=== PATIENT | female | born 1990 | race Caucasian/White ===

== ENCOUNTER 2018-10-17 13:33 | Outpatient (CLI) | payer MEDICAID | END 2018-10-17 19:15 | disposition home or self-care (01) | LOC: OBT 13:33 → L-D 13:33 → OBT 19:15 | DX: O62.9 Abnormality of forces of labor, unspecified (principal); Z3A.36 36 weeks gestation of pregnancy | CPT/HCPCS: 36415; 93970 ==

== ENCOUNTER 2018-10-22 03:01 | Inpatient (IN) | payer MEDICAID ==
[2018-10-22] MEDS: TERBUTALINE 1 MG/ML INJ SC (04:22)
[2018-10-22] MEDS: LACTATED RINGER'S 1,000 ML IV ×3 (04:23→21:24)
[2018-10-22 04:30] LABS: ADD MAN DIFF? NO
[2018-10-22] MEDS ORDERED: OXYTOCIN 30 UNITS/LR 500 ML IV ×4 (04:30→10:42)
[2018-10-22] MEDS ORDERED: MISOPROSTOL 200 MCG TAB PR ×2 (04:30→09:30)
[2018-10-22] MEDS ORDERED: CARBOPROST 250 MCG INJ IM ×2 (04:30→09:30)
[2018-10-22] MEDS ORDERED: METHYLERGONOVINE 0.2 MG INJ IM ×2 (04:30→09:30)
[2018-10-22 04:32] LABS: WHITE BLOOD COUNT 14.2 10^3/ul (4.8-10.8)
[2018-10-22 04:32] LABS: BASOPHIL # 0.1 10^3/ul (0.0-0.1); BASOPHILS % 0.4 % (0.0-2.0); EOSINOPHILS # 1.1 10^3/ul (0.0-0.5); EOSINOPHILS % 7.9 % (0.0-7.0); HEMATOCRIT 37.9 % (37.0-47.0); HEMOGLOBIN 12.2 g/dl (12.0-16.0); LYMPHOCYTES # 2.3 10^3/ul (0.8-2.9); LYMPHOCYTES % 16.5 % (15.0-51.0); MEAN CORPUSCULAR HEMOGLOBIN 27.9 pg (29.0-33.0); MEAN CORPUSCULAR HGB CONC 32.2 g/dl (32.0-37.0); MEAN CORPUSCULAR VOLUME 86.7 fl (82.0-101.0); MEAN PLATELET VOLUME 10.5 fl (7.4-10.4); MONOCYTES % 7.3 % (0.0-11.0); NEUTROPHIL # 9.5 10^3/ul (1.6-7.5); NEUTROPHILS % 67.3 % (39.0-77.0); PLATELET COUNT 226 10^3/UL (140-415); RED BLOOD COUNT 4.37 10^6/ul (4.20-5.40)
[2018-10-22 04:53] LABS: INR 0.89; PROTIME 12.2 Sec (11.9-14.9)
[2018-10-22 04:54] LABS: PARTIAL THROMBOPLASTIN TIME 25.8 Sec (23.0-35.0)
[2018-10-22 06:02] LABS: HEPATITIS B SURFACE ANTIGEN NEGATIVE (NEGATIVE)
[2018-10-22] MEDS ORDERED: morphine SULFATE/PF (10 MG/10 ML) INJ (08:04)
[2018-10-22] MEDS ORDERED: KETOROLAC 30 MG INJ (08:04)
[2018-10-22] MEDS ORDERED: METOCLOPRAMIDE 10 MG INJ (08:04)
[2018-10-22] MEDS ORDERED: FAMOTIDINE 20 MG INJ (09:01)
[2018-10-22] MEDS ORDERED: NACL 0.9% 3 ML SYG IV (09:30)
[2018-10-22] MEDS: OXYTOCIN 30 UNITS/LR 500 ML IV ×2 (09:32→12:15)
[2018-10-22] MEDS ORDERED: NALOXONE (0.4 MG/ML) INJ IV (11:30)
[2018-10-22] MEDS ORDERED: morphine 2 MG INJ IV ×5 (11:30)
[2018-10-22] MEDS ORDERED: DIPHENHYDRAMINE 50 MG INJ IV ×2 (11:30)
[2018-10-22] MEDS ORDERED: ONDANSETRON 4 MG INJ IV ×2 (11:30)
[2018-10-22] MEDS: morphine 2 MG INJ IV (11:41)
[2018-10-22] MEDS: CEFAZOLIN 2 GM/50 ML (PMX) 50 ML IVPB (15:50)
[2018-10-22 18:49] LABS: RAPID PLASMA REAGIN NONREACTIVE (NR)
[2018-10-23] MEDS: KETOROLAC 30 MG INJ IV (02:03)
[2018-10-23] MEDS: LACTATED RINGER'S 1,000 ML IV ×2 (05:29→12:03)
[2018-10-23 06:55] LABS: ADD MAN DIFF? NO
[2018-10-23 07:05] LABS: WHITE BLOOD COUNT 13.5 10^3/ul (4.8-10.8)
[2018-10-23 07:05] LABS: BASOPHIL # 0.1 10^3/ul (0.0-0.1); BASOPHILS % 0.4 % (0.0-2.0); EOSINOPHILS # 1.1 10^3/ul (0.0-0.5); EOSINOPHILS % 7.9 % (0.0-7.0); HEMATOCRIT 33.1 % (37.0-47.0); HEMOGLOBIN 10.4 g/dl (12.0-16.0); LYMPHOCYTES # 2.5 10^3/ul (0.8-2.9); LYMPHOCYTES % 18.7 % (15.0-51.0); MEAN CORPUSCULAR HEMOGLOBIN 27.7 pg (29.0-33.0); MEAN CORPUSCULAR HGB CONC 31.4 g/dl (32.0-37.0); MEAN CORPUSCULAR VOLUME 88.3 fl (82.0-101.0); MEAN PLATELET VOLUME 10.3 fl (7.4-10.4); MONOCYTE # 0.9 10^3/ul (0.3-0.9); MONOCYTES % 6.4 % (0.0-11.0); NEUTROPHIL # 8.9 10^3/ul (1.6-7.5); NEUTROPHILS % 66.1 % (39.0-77.0); PLATELET COUNT 197 10^3/UL (140-415); RED BLOOD COUNT 3.75 10^6/ul (4.20-5.40); RED CELL DISTRIBUTION WIDTH 14.1 % (11.5-14.5)
[2018-10-23] MEDS: LANOLIN HPA 1 PKT TOP (12:41)
[2018-10-23] MEDS: HYDROCODONE/APAP (5/325) TAB PO ×2 (12:41→21:23)
[2018-10-23] MEDS: IBUPROFEN 600 MG TAB PO (18:09)
[2018-10-24] MEDS: IBUPROFEN 600 MG TAB PO ×4 (00:10→17:40)
[2018-10-24] MEDS: NA PHOSPHATE/BIPHOS 133 ML ENEMA PR (11:59)
[2018-10-25] MEDS: IBUPROFEN 600 MG TAB PO ×4 (00:10→17:58)
[2018-10-25] MEDS: HYDROCODONE/APAP (5/325) TAB PO ×2 (03:27→13:38)
[2018-10-25] MEDS: DIPHTH/TET/ACEL PERTUSS (ADULT) 0.5 ML VIAL IM* (09:00)
[2018-10-25] MEDS: MEASLES,MUMPS,RUBELLA VACCINE INJ SC* (09:00)
[2018-10-26] MEDS: HYDROCODONE/APAP (5/325) TAB PO ×2 (01:06→10:02)
[2018-10-26] MEDS: IBUPROFEN 600 MG TAB PO ×3 (06:28→12:00)
== END 2018-10-26 13:45 | disposition home or self-care (01) | DRG 785 ==
LOC: OBT 03:01 → L-D 03:03 → OBT 03:30 → L-D 03:30 → PP1 12:21
PROVIDERS: Obstetrics & Gynecology
PROC: 10D00Z1 Extraction of Products of Conception, Low, Open Approach (ICD-10-PCS; principal; 2018-10-22)
PROC: 0UB70ZZ Excision of Bilateral Fallopian Tubes, Open Approach (ICD-10-PCS; 2018-10-22)
DX: O42.02 Full-term premature rupture of membranes, onset of labor within 24 hours of rupture (principal); Z37.0 Single live birth; Z3A.37 37 weeks gestation of pregnancy
CPT/HCPCS: 76818; 84112; 85025; 85610; 85730; 86592; 86850; 86900; 86901; 87340; 88302; 99464